=== PATIENT | female | born 1940 | race Hispanic/Latino ===

== ENCOUNTER 2017-12-02 22:45 | Emergency (ER) | payer MEDICARE, MEDICAID | END 2017-12-02 23:42 | disposition home or self-care (01) | LOC: SCSER 22:45 | DX: R60.0 Localized edema (principal); E78.00 Pure hypercholesterolemia, unspecified; I10 Essential (primary) hypertension; E11.9 Type 2 diabetes mellitus without complications; Z79.899 Other long term (current) drug therapy; Z87.442 Personal history of urinary calculi | CPT/HCPCS: 99283 ==